=== PATIENT | male | born 1975 | race Caucasian/White ===

== ENCOUNTER 2017-08-19 23:07 | Emergency (ER) | payer MEDICAID, OTHER ==
[2017-08-19] MEDS ORDERED: fentaNYL 100 MCG/2 ML VIAL IVP STA (23:51)
[2017-08-19 23:57] VITALS: BP 129/83
[2017-08-20] MEDS ORDERED: fentaNYL 100 MCG/2 ML VIAL ONE (00:02)
[2017-08-20 00:04] LABS: BASOPHILS # (AUTO) 0.1 10^3/uL (0.0-0.1); BASOPHILS % (AUTO) 0.6 %; EOSINOPHILS # (AUTO) 0.4 10^3/uL (0.0-0.7); EOSINOPHILS % (AUTO) 3.9 %; HGB - HEMOGLOBIN 14.4 g/dL (14.0-18.0); LYMPHOCYTES # (AUTO) 2.9 10^3/uL (1.5-3.5); LYMPHOCYTES % (AUTO) 26.5 %; MEAN CORPUSCULAR HEMOGLOBIN 33.3 pg (27.0-31.0); MEAN CORPUSCULAR VOLUME 95.1 fL (80.0-94.0); MEAN PLATELET VOLUME 7.1 fL (7.4-11.4); MONOCYTES # (AUTO) 0.9 10^3/uL (0.0-1.0); MONOCYTES % (AUTO) 8.2 %; NEUTROPHILS # (AUTO) 6.7 10^3/uL (1.5-6.6); NEUTROPHILS % (AUTO) 60.8 %; RED BLOOD COUNT 4.31 10^6/uL (4.70-6.10); RED CELL DISTRIBUTION WIDTH 13.3 % (12.0-15.0); UNCORRECTED WHITE BLOOD COUNT 11.1 x10^3/uL; WHITE BLOOD COUNT 11.1 x10^3/uL (4.8-10.8)
[2017-08-20 00:14] LABS: ALBUMIN/GLOBULIN RATIO 1.4 (1.0-2.2); BILIRUBIN,TOTAL 0.4 mg/dL (0.2-1.0); CALCIUM 9.2 mg/dL (8.5-10.3); CREATININE 0.8 mg/dL (0.6-1.2); POTASSIUM 3.8 mmol/L (3.5-5.0); TOTAL PROTEIN 6.6 g/dL (6.7-8.2)
--- NOTE | 2017-08-20 00:54 | XRAY Preliminary Report ---
Exam: XR CHEST 1 VIEW IMPRESSION: Normal single view chest. [facility] SITE ID: [id number]
--- NOTE | 2017-08-20 00:57 | XRAY Report ---
EXAM: CHEST RADIOGRAPHY EXAM DATE: 08/20/2017 12:47 AM. CLINICAL HISTORY: Left sided chest pain. COMPARISON: 02/28/2011. TECHNIQUE: 1 view. FINDINGS: Lungs/Pleura: No focal opacities evident. No pleural effusion. No pneumothorax. Mediastinum: Within exam limitations, the cardiomediastinal contour is normal. Other: No bony abnormality noted. IMPRESSION: Normal single view chest. [facility] Referring Provider Line: [phone] SITE ID: [id number]
[2017-08-20] MEDS ORDERED: LIDOCAINE 2% 10 ML MDV ONE (01:50)
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
== END 2017-08-20 02:20 | disposition left against medical advice (07) ==
LOC: ED 23:07
DX: S69.82XA Other specified injuries of left wrist, hand and finger(s), initial encounter (principal); W31.89XA Contact with other specified machinery, initial encounter; Z53.29 Procedure and treatment not carried out because of patient's decision for other reasons; F17.200 Nicotine dependence, unspecified, uncomplicated
CPT/HCPCS: 36415; 71010; 80053; 83690; 84484; 85025; 93005; 99283; 99285

== ENCOUNTER 2017-11-01 10:16 | Emergency (ER) | payer OTHER, MEDICAID ==
[2017-11-01 10:31] VITALS: BP 110/83
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
[2017-11-01] MEDS ORDERED: IBUPROFEN 400 MG TABLET PO STA (11:16)
[2017-11-01] MEDS ORDERED: LIDOCAINE PATCH 5% TOP STA (11:16)
== END 2017-11-01 11:35 | disposition home or self-care (01) ==
LOC: ED 10:16
DX: S13.9XXA Sprain of joints and ligaments of unspecified parts of neck, initial encounter (principal); V49.40XA Driver injured in collision with unspecified motor vehicles in traffic accident, initial encounter; F17.200 Nicotine dependence, unspecified, uncomplicated
CPT/HCPCS: 99283; A9270

== ENCOUNTER 2019-05-23 16:34 | Emergency (ER) | payer MEDICAID, OTHER ==
--- NOTE | 2019-05-23 16:44 | ED Physician Documentation ---
History of Present Illness - Stated complaint Stated Complaint: CHEST PX - Chief complaint Chief Complaint: Cardiac - History obtained from History obtained from: Patient - Additonal information Additional information: Patient is a 44-year-old male presenting with about 1 month of intermittent left-sided chest discomfort and occasional palpitations. Patient denies any inciting incident or trauma. Patient has tried to see a primary care physician, but has not been unable to schedule an appointment. Patient denies association of lightheadedness, dizziness, syncope, shortness of breath, productive cough, fever, abdominal pain, GERD, nausea, vomiting, stool changes, urinary changes, leg swelling or pain. Patient does use alcohol, tobacco, and CBD oil. No other improving or worsening factors noted. Review of Systems Constitutional: denies: Fever Cardiac: reports: Chest pain / pressure, Palpitations Respiratory: denies: Dyspnea, Cough GI: denies: Abdominal Pain, Nausea, Vomiting, Diarrhea : denies: Dysuria PD PAST MEDICAL HISTORY - Past Medical History Past Medical History: No Psych: Panic attacks - Past Surgical History Past Surgical History: No - Present Medications Home Medications: Ambulatory Orders Medication Instructions Recorded Confirmed Citalopram [CeleXA] 1 tab PO DAILY 01/30/16 03/12/16 LORazepam [Ativan] 0.5 mg PO ONCE 01/30/16 03/12/16 Cyclobenzaprine [Flexeril] 10 mg PO TID PRN #20 tablet 03/12/16 HYDROcod/ACETAM 5/325 [[place] 5/325] 1 - 2 ea PO Q6H PRN #20 tablet 03/12/16 Cyclobenzaprine [Flexeril] 10 mg PO TID PRN #20 tablet 11/01/17 Ibuprofen [Motrin] 400 mg PO Q6H PRN #30 tablet 11/01/17 Lidocaine Patch 5% [Lidoderm Patch] 1 each TOP DAILY PRN #10 patch 11/01/17 - Allergies Allergies/Adverse Reactions: Allergies Allergy/AdvReac Type Severity Reaction Status Date / Time No Known Drug Allergies Allergy Verified 05/23/19 16:41 - Social History Does the pt smoke?: Yes Smoking Status: Current every day smoker Does the pt drink ETOH?: No Does the pt have substance abuse?: No - Immunizations Immunizations are current?: No - POLST Patient has POLST: No PD ED PE NORMAL - Vitals Vital signs reviewed: Yes - General General: Alert and oriented X 3, No acute distress, Well developed/nourished - HEENT HEENT: Atraumatic, Moist mucous membranes - Neck Neck: Supple, no meningeal sign - Cardiac Cardiac: RRR, No murmur - Respiratory Respiratory: No respiratory distress, Clear bilaterally - Abdomen Abdomen: Normal bowel sounds, Soft, Non tender, Non distended - Derm Derm: Normal color, Warm and dry, No rash - Extremities Extremities: No deformity, No tenderness to palpate, No edema - Neuro Neuro: Alert and oriented X 3, No motor deficit, No sensory deficit - Psych Psych: Normal mood, Normal affect Results - Vitals Vitals: Vital Signs - 24 hr 05/23/19 16:36 Temperature 36.8 C Heart Rate 87 Respiratory 19 Rate Blood Pressure 151/93 H O2 Saturation 99 Oxygen O2 Source Room air - EKG (time done) 1637 Rate: Rate (enter#) (79) Rhythm: NSR - Labs Labs: Laboratory Tests 05/23/19 05/23/19 05/23/19 17:09 17:09 17:09 WBC 7.8 RBC 4.39 L Hgb 14.5 Hct 42.7 MCV 97.3 H MCH 33.0 H MCHC 34.0 RDW 12.6 Plt Count 218 MPV 9.0 Neut # (Auto) 4.2 Lymph # (Auto) 2.6 [place] # (Auto) 0.6 Eos # (Auto) 0.3 Baso # (Auto) 0.1 Absolute Nucleated RBC 0.00 Nucleated RBC % 0.0 PT 10.8 INR 1.0 APTT 27.8 Sodium 139 Potassium 3.5 Chloride 103 Carbon Dioxide 23 Anion Gap 13.0 BUN 18 Creatinine 1.0 Estimated GFR (MDRD) 80 L Glucose 179 H Calcium 9.3 Total Bilirubin 0.4 AST 27 ALT 34 Alkaline Phosphatase 71 Troponin I Troponin I High Sens B-Natriuretic Peptide Total Protein 7.1 Albumin 3.9 Globulin 3.2 Albumin/Globulin Ratio 1.2 Lipase 32 TSH 05/23/19 05/23/19 05/23/19 17:09 17:09 17:09 WBC RBC Hgb Hct MCV MCH MCHC RDW Plt Count MPV Neut # (Auto) Lymph # (Auto) [place] # (Auto) Eos # (Auto) Baso # (Auto) Absolute Nucleated RBC Nucleated RBC % PT INR APTT Sodium Potassium Chloride Carbon Dioxide Anion Gap BUN Creatinine Estimated GFR (MDRD) Glucose Calcium Total Bilirubin AST ALT Alkaline Phosphatase Troponin I < 0.04 Troponin I High Sens 4.9 B-Natriuretic Peptide 18 Total Protein Albumin Globulin Albumin/Globulin Ratio Lipase TSH 1.27 PD MEDICAL DECISION MAKING - ED course Complexity details: reviewed results, re-evaluated patient, considered differential, d/w patient, d/w family ED course: Patient presenting with intermittent chest discomfort over the past 1 month. Patient does have risk factors of tobacco use. He reports that he does not have known diagnosis of other illnesses such as diabetes or hypertension, but has not been to the doctor for several years. Chest x-ray obtained which not find evidence of pulmonary edema, pneumonia, or other acute abnormality. EKG did not reflect ischemia and cardiac enzymes within normal limits. Remainder of work-up also unremarkable. Patient did receive aspirin while in the ED, but did not require other medications. Had extensive discussions with patient and family regarding need to follow-up with primary care physician, likely primary care physician referral to cardiology for further work-up including stress test and echocardiogram, return precautions, and other supportive cares including cessation of tobacco. Departure - Departure Disposition: 01 Home, Self Care Clinical Impression: Atypical chest pain Condition: Good Instructions: ED Chest Pain Atypical Unkn Cause Follow-Up: Doyle Alonso MD [Physician No Access] - Within 3 Days Comments: Recommend stopping use of CBD oil, tobacco, and alcohol. Recommend healthy diet, rest, and follow-up with primary care physician in the next 2 to 3 days or as soon as can be scheduled. May also try to contact cardiology office eyelid for follow-up. Please return to ED sooner if experience worsening symptoms or have other concerns.
[2019-05-23] MEDS ORDERED: ASPIRIN CHEW 81 MG TABLET PO STA (16:52)
[2019-05-23 17:18] LABS: BASOPHILS # (AUTO) 0.1 10^3/uL (0.0-0.1); BASOPHILS % (AUTO) 0.8 %; EOSINOPHILS # (AUTO) 0.3 10^3/uL (0.0-0.7); EOSINOPHILS % (AUTO) 4.4 %; HGB - HEMOGLOBIN 14.5 g/dL (14.0-18.0); LYMPHOCYTES # (AUTO) 2.6 10^3/uL (1.5-3.5); LYMPHOCYTES % (AUTO) 33.8 %; MEAN CORPUSCULAR VOLUME 97.3 fL (80.0-94.0); MONOCYTES # (AUTO) 0.6 10^3/uL (0.0-1.0); MONOCYTES % (AUTO) 7.6 %; NEUTROPHILS # (AUTO) 4.2 10^3/uL (1.5-6.6); NEUTROPHILS % (AUTO) 53.3 %; PLT - PLATELET COUNT 218 10^3/uL (130-450); RED BLOOD COUNT 4.39 10^6/uL (4.70-6.10); RED CELL DISTRIBUTION WIDTH 12.6 % (12.0-15.0); WHITE BLOOD COUNT 7.8 x10^3/uL (4.8-10.8)
[2019-05-23 17:23] LABS: PT - PROTHROMBIN TIME 10.8 secs (9.9-12.6)
[2019-05-23 17:31] LABS: PARTIAL THROMBOPLASTIN TIME 27.8 secs (24.9-33.3)
--- NOTE | 2019-05-23 17:39 | XRAY Report ---
Reason: cough Procedure Date: 05/23/2019 Accession Number: [id number] / [id number] Procedure: XR - Chest 2 View X-Ray CPT Code: 64491 FULL RESULT: EXAM: CHEST RADIOGRAPHY EXAM DATE: 05/23/2019 05:15 PM. CLINICAL HISTORY: Cough. COMPARISON: CHEST 1 VIEW 08/20/2017 12:48 AM. TECHNIQUE: 2 views. FINDINGS: Lungs/Pleura: No focal opacities evident. No pleural effusion. No pneumothorax. Normal volumes. Mediastinum: Heart and mediastinal contours are unremarkable. Other: None. IMPRESSION: No acute intrathoracic plain film abnormality. [facility]
[2019-05-23 17:56] LABS: TROPONIN I < 0.04 ng/mL (<0.49)
[2019-05-23 17:57] LABS: BILIRUBIN,TOTAL 0.4 mg/dL (0.2-1.0); CALCIUM 9.3 mg/dL (8.5-10.3)
[2019-05-23 17:58] LABS: ALBUMIN 3.9 g/dL (3.2-5.5); ALBUMIN/GLOBULIN RATIO 1.2 (1.0-2.2); TOTAL PROTEIN 7.1 g/dL (6.7-8.2)
[2019-05-23 18:34] VITALS: BP 143/74
== END 2019-05-23 18:33 | disposition home or self-care (01) ==
LOC: ED 16:34
DX: R07.89 Other chest pain (principal); F17.200 Nicotine dependence, unspecified, uncomplicated
CPT/HCPCS: 36415; 71046; 83690; 83880; 84484; 85610; 85730; 99283; 99284; A9270; 80053; 84443; 85025

== ENCOUNTER 2020-10-23 08:56 | Emergency (ER) | payer OTHER ==
[2020-10-23] MEDS ORDERED: LORazepam 2 MG/ML VIAL IVP STA (09:06)
--- NOTE | 2020-10-23 09:06 | ED Physician Documentation ---
PD HPI CHEST PAIN - Stated complaint Stated Complaint: CHEST PX - History obtained from History obtained from: Patient - Additional information Additional information: 45-year-old gentleman with history of anxiety was in his usual state of health this morning when he started to feel like his heart was beating rapidly at 7 AM. It is painless but he does have shortness of breath with it. No pedal edema or calf pain. His father had A. fib but he has no personal history of heart disease. Review of Systems Constitutional: denies: Fever, Chills, Sweats Cardiac: reports: Palpitations. denies: Chest pain / pressure, Pedal edema, Calf pain Respiratory: reports: Dyspnea. denies: Cough PD PAST MEDICAL HISTORY - Past Medical History Psych: Panic attacks - Past Surgical History Past Surgical History: No - Present Medications Home Medications: Ambulatory Orders Medication Instructions Recorded Confirmed LORazepam [Ativan] 1 mg PO TID PRN #7 tablet 10/23/20 - Allergies Allergies/Adverse Reactions: Allergies Allergy/AdvReac Type Severity Reaction Status Date / Time No Known Drug Allergies Allergy Verified 10/23/20 09:16 - Social History Does the pt smoke?: Yes Smoking Status: Current every day smoker Does the pt drink ETOH?: No Does the pt have substance abuse?: No - Immunizations Immunizations are current?: No - POLST Patient has POLST: No PD ED PE NORMAL - Vitals Vital signs reviewed: Yes - General General: Alert and oriented X 3, Other (Appears mildly anxious but otherwise in no distress.) - HEENT HEENT: PERRL, EOMI - Neck Neck: Supple, no meningeal sign, No bony TTP - Cardiac Cardiac: RRR, No murmur - Respiratory Respiratory: No respiratory distress, Clear bilaterally - Abdomen Abdomen: Non tender - Extremities Extremities: No edema, No calf tenderness / cord - Neuro Neuro: Alert and oriented X 3, Normal speech Results - Vitals Vitals: Vital Signs - 24 hr 10/23/20 10/23/20 10/23/20 09:00 09:05 09:35 Temperature 36.4 C L Heart Rate 81 80 77 Respiratory 21 13 14 Rate Blood Pressure 200/120 H 197/106 H 168/86 H O2 Saturation 99 96 94 Oxygen O2 Source Room air - EKG (time done) 0903 Rate: Rate (enter#) (83) Rhythm: NSR, LAE [place]: LAD Intervals: Normal [place] QRS: Normal Ischemia: Normal ST segments - Labs Labs: Laboratory Tests 10/23/20 10/23/20 10/23/20 09:00 09:00 09:00 WBC 8.3 RBC 4.83 Hgb 16.3 Hct 47.3 MCV 97.9 H MCH 33.7 H MCHC 34.5 RDW 12.3 Plt Count 247 MPV 8.8 Neut # (Auto) 6.3 Lymph # (Auto) 1.3 L [place] # (Auto) 0.5 Eos # (Auto) 0.1 Baso # (Auto) 0.1 Absolute Nucleated RBC 0.00 Nucleated RBC % 0.0 Sodium 136 Potassium 3.9 Chloride 103 Carbon Dioxide 24 Anion Gap 9.0 BUN 13 Creatinine 1.0 Estimated GFR (MDRD) 80 L Glucose 172 H Calcium 9.3 Troponin I High Sens 5.4 PD MEDICAL DECISION MAKING - ED course ED course: Presents with painless palpitations, he is in normal sinus rhythm. Cannot rule out resolved A. fib but this is not present in the department. He remained stable and felt much better after Ativan. No evidence of ischemic disease. Departure - Departure Disposition: Home, Self Care Clinical Impression: Palpitations Condition: Good Record reviewed to determine appropriate education?: Yes Instructions: ED Palpitations Prescriptions: LORazepam [Ativan] 1 mg PO TID PRN #7 tablet PRN Reason: Anxiety Comments: No findings of irregular heartbeat or fast heartbeat on her work-up here. Return if it recurs or if new symptoms develop. Do not drink or drive while taking Ativan. Follow-up with your primary care physician, next available appointment.
[2020-10-23 09:20] LABS: BASOPHILS # (AUTO) 0.1 10^3/uL (0.0-0.1); BASOPHILS % (AUTO) 0.7 %; EOSINOPHILS # (AUTO) 0.1 10^3/uL (0.0-0.7); EOSINOPHILS % (AUTO) 1.3 %; HGB - HEMOGLOBIN 16.3 g/dL (14.0-18.0); LYMPHOCYTES # (AUTO) 1.3 10^3/uL (1.5-3.5); LYMPHOCYTES % (AUTO) 15.6 %; MEAN CORPUSCULAR HEMOGLOBIN 33.7 pg (27.0-31.0); MEAN CORPUSCULAR HGB CONC 34.5 g/dL (32.0-36.0); MEAN CORPUSCULAR VOLUME 97.9 fL (80.0-94.0); MEAN PLATELET VOLUME 8.8 fL (7.4-11.4); MONOCYTES # (AUTO) 0.5 10^3/uL (0.0-1.0); MONOCYTES % (AUTO) 5.9 %; NEUTROPHILS # (AUTO) 6.3 10^3/uL (1.5-6.6); NEUTROPHILS % (AUTO) 76.1 %; PLT - PLATELET COUNT 247 10^3/uL (130-450); RED BLOOD COUNT 4.83 10^6/uL (4.70-6.10); RED CELL DISTRIBUTION WIDTH 12.3 % (12.0-15.0); WHITE BLOOD COUNT 8.3 x10^3/uL (4.8-10.8)
[2020-10-23 09:29] LABS: CALCIUM 9.3 mg/dL (8.5-10.3)
[2020-10-23] MEDS ORDERED: LORazepam 1 MG TABLET PO STA (09:52)
[2020-10-23 09:59] VITALS: BP 153/91
== END 2020-10-23 10:00 | disposition home or self-care (01) ==
LOC: ED 08:56
DX: R00.2 Palpitations (principal); F41.9 Anxiety disorder, unspecified; F17.200 Nicotine dependence, unspecified, uncomplicated
CPT/HCPCS: 36415; 80048; 84484; 85025; 93005; 96374; 99283; 99284; J2060; J8499

== ENCOUNTER 2020-11-19 16:48 | Outpatient (CLI) | payer OTHER | END 2020-11-19 16:49 | disposition home or self-care (01) | LOC: COV 16:48 | PROVIDERS: ATTEND Family Medicine | DX: U07.1 COVID-19 (principal) ==

== ENCOUNTER 2022-02-21 13:22 | Emergency (ER) | payer OTHER ==
[2022-02-21 13:53] LABS: BASOPHILS # (AUTO) 0.1 10^3/uL (0.0-0.1); EOSINOPHILS # (AUTO) 0.2 10^3/uL (0.0-0.7); EOSINOPHILS % (AUTO) 2.9 %; HCT - HEMATOCRIT 45.8 % (42.0-52.0); HGB - HEMOGLOBIN 15.7 g/dL (14.0-18.0); LYMPHOCYTES # (AUTO) 1.3 10^3/uL (1.5-3.5); LYMPHOCYTES % (AUTO) 15.9 %; MEAN CORPUSCULAR HEMOGLOBIN 33.5 pg (27.0-31.0); MEAN CORPUSCULAR HGB CONC 34.3 g/dL (32.0-36.0); MEAN CORPUSCULAR VOLUME 97.7 fL (80.0-94.0); MEAN PLATELET VOLUME 8.9 fL (7.4-11.4); MONOCYTES # (AUTO) 0.6 10^3/uL (0.0-1.0); MONOCYTES % (AUTO) 7.6 %; PLT - PLATELET COUNT 218 10^3/uL (130-450); RED BLOOD COUNT 4.69 10^6/uL (4.70-6.10); RED CELL DISTRIBUTION WIDTH 12.6 % (12.0-15.0); WHITE BLOOD COUNT 8.3 x10^3/uL (4.8-10.8)
[2022-02-21 14:06] LABS: ALBUMIN 3.8 g/dL (3.2-5.5); ALBUMIN/GLOBULIN RATIO 1.2 (1.0-2.2); BILIRUBIN,TOTAL 0.8 mg/dL (0.2-1.0); CALCIUM 9.1 mg/dL (8.5-10.3); CREATININE 0.8 mg/dL (0.6-1.2); POTASSIUM 4.2 mmol/L (3.5-5.0)
[2022-02-21] MEDS ORDERED: SODIUM CHLORIDE 0.9% 1,000 ML IV STA (14:22)
[2022-02-21] MEDS ORDERED: ONDANSETRON 4 MG/2 ML VIAL IVP STA (14:22)
[2022-02-21] MEDS ORDERED: HYDROmorphone 1 MG/ML CARPUJECT IVP STA (14:22)
[2022-02-21] MEDS ORDERED: KETOROLAC 15 MG/ML VIAL IVP STA (14:22)
--- NOTE | 2022-02-21 14:23 | ED Physician Documentation ---
PD HPI ABD PAIN - Stated complaint Stated Complaint: BACK PX,VOMITTING - Chief complaint Chief Complaint: Abd Pain - History obtained from History obtained from: Patient - Additional information Additional information: 46-year-old healthy gentleman was awoken at 2 AM this morning by severe left flank pain that has caused him to vomit several times. No urinary complaints or hematuria. No history of renal colic. No fevers or chills. Review of Systems Ten Systems: 10 systems reviewed and negative Constitutional: reports: Reviewed and negative Cardiac: reports: Reviewed and negative Respiratory: reports: Reviewed and negative PD PAST MEDICAL HISTORY - Past Medical History Psych: Panic attacks - Past Surgical History Past Surgical History: No - Present Medications Home Medications: Ambulatory Orders Medication Instructions Recorded Confirmed LORazepam [Ativan] 1 mg PO TID PRN #7 tablet 10/23/20 02/21/22 Ibuprofen [Motrin] 800 mg PO Q8H PRN #14 tablet 02/21/22 Ondansetron Odt [Zofran] 4 mg TL Q6H PRN #10 tablet 02/21/22 Oxycodone HCl/Acetaminophen 1 - 2 each PO Q6H PRN #14 tablet 02/21/22 [Percocet 5-325 mg Tablet] - Allergies Allergies/Adverse Reactions: Allergies Allergy/AdvReac Type Severity Reaction Status Date / Time No Known Drug Allergies Allergy Verified 02/21/22 13:39 - Social History Does the pt smoke?: Yes Smoking Status: Current every day smoker Does the pt drink ETOH?: No Does the pt have substance abuse?: No - Immunizations Immunizations are current?: No - POLST Patient has POLST: No PD ED PE NORMAL - Vitals Vital signs reviewed: Yes - General General: Alert and oriented X 3, Other (He appears uncomfortable and is laying on his side curled up in a ball) - Cardiac Cardiac: RRR, No murmur - Respiratory Respiratory: No respiratory distress, Clear bilaterally - Abdomen Abdomen: Normal bowel sounds, Soft, Non tender - Back Back: No CVA TTP, No spinal TTP - Derm Derm: Normal color, Warm and dry - Extremities Extremities: No edema, No calf tenderness / cord - Neuro Neuro: Alert and oriented X 3, Normal speech Results - Vitals Vitals: Vital Signs - 24 hr 02/21/22 13:36 Temperature 36.5 C Heart Rate 61 Respiratory 16 Rate Blood Pressure 160/97 H O2 Saturation 100 Oxygen O2 Source Room air - Labs Labs: Laboratory Tests 02/21/22 02/21/22 02/21/22 13:32 13:46 13:46 WBC 8.3 RBC 4.69 L Hgb 15.7 Hct 45.8 MCV 97.7 H MCH 33.5 H MCHC 34.3 RDW 12.6 Plt Count 218 MPV 8.9 Neut # (Auto) 6.0 Lymph # (Auto) 1.3 L [place] # (Auto) 0.6 Eos # (Auto) 0.2 Baso # (Auto) 0.1 Absolute Nucleated RBC 0.00 Nucleated RBC % 0.0 Sodium 136 Potassium 4.2 Chloride 102 Carbon Dioxide 25 Anion Gap 9.0 BUN 11 Creatinine 0.8 Estimated GFR (MDRD) 103 Glucose 135 H Calcium 9.1 Total Bilirubin 0.8 AST 22 ALT 39 Alkaline Phosphatase 59 Total Protein 7.0 Albumin 3.8 Globulin 3.2 Albumin/Globulin Ratio 1.2 Lipase 33 Urine Color YELLOW Urine Clarity CLEAR Urine pH 7.0 Ur Specific [place] 1.020 Urine Protein NEGATIVE Urine Glucose (UA) NEGATIVE Urine Ketones NEGATIVE Urine Occult Blood NEGATIVE Urine Nitrite NEGATIVE Urine Bilirubin NEGATIVE Urine Urobilinogen 0.2 (NORMAL) Ur Leukocyte Esterase NEGATIVE Ur Microscopic Review NOT INDICATED Urine Culture Comments NOT INDICATED PD MEDICAL DECISION MAKING - ED course ED course: 46-year-old gentleman presents with severe back pain with vomiting. After administration of pain medication he was very comfortable at that point it became clear that the pain was associated with motion. CT was negative for renal stone etc., the incidental finding of the inguinal hernia was discussed with him. Departure - Departure Disposition: 01 Home, Self Care Clinical Impression: Left flank pain Condition: Good Record reviewed to determine appropriate education?: Yes Instructions: ED Neck Back Pain General Prescriptions: Ibuprofen [Motrin] 800 mg PO Q8H PRN #14 tablet PRN Reason: PAIN &/OR FEVER Oxycodone HCl/Acetaminophen [Percocet 5-325 mg Tablet] 1 - 2 each PO Q6H PRN #14 tablet PRN Reason: pain Ondansetron Odt [Zofran] 4 mg TL Q6H PRN #10 tablet PRN Reason: Nausea / Vomiting Comments: I sent your prescription electronically to the [facility] pharmacy at the corner of [address] here in [place]. Return for new or worsening symptoms. As discussed you do have a incidental finding of a right inguinal hernia which may bother you some day. Call your doctor to arrange a follow-up appointment, make the next available appointment. In the interim, return anytime if worse or if new symptoms develop. I am prescribing a short course of narcotic pain medication for you. These are potentially dangerous and addictive medications that should be used carefully. These medications may constipate you. Take an [id number] stool softener (docusate) twice daily with plenty of water while taking these medications. If you go 24 hours without a bowel movement, take [id number]-[id number] miralax, per package instructions. Do not drink or drive while taking these medications. If you received narcotic or sedating medications while in the emergency department, do not drive for 24 hours. Store this medication in a safe, secure place and out of reach of children. It is a violation of federal law to give or sell this medication to another person or to use in a manner other than prescribed. The ED will not refill narcotic prescriptions, including prescriptions lost or stolen. To dispose of unwanted medications: 1. [facility] [address] in [place] has a medication drop box. They accept prescription medications (in pill form) Monday through Monday 9:00 a.m. to 5:00 p.m. 2. The [facility] accepts prescription medications (in pill form only) for disposal year round. Call for more information. 3. Contact the [facility] for the next [facility] sponsored prescription drug collection event. , [phone], or [phone]; Note that many narcotic pain relievers also contain Tylenol/acetaminophen. Please ensure that your total dose of acetaminophen from all sources does not exceed 3 g (3000 mg) per day.
[2022-02-21 14:47] LABS: BILIRUBIN,URINE NEGATIVE (NEGATIVE); GLUCOSE, URINE (UA) NEGATIVE (NEGATIVE); KETONES,URINE (UA) NEGATIVE (NEGATIVE); LEUKOCYTE ESTERASE, URINE NEGATIVE (NEGATIVE); NITRITE,URINE NEGATIVE (NEGATIVE); OCCULT BLOOD,URINE NEGATIVE (NEGATIVE); PROTEIN,URINE NEGATIVE (NEGATIVE); UROBILINOGEN,URINE 0.2 (NORMAL) E.U./dL (NORMAL)
[2022-02-21 14:49] LABS: CLARITY,URINE CLEAR (CLEAR)
--- NOTE | 2022-02-21 15:52 | CT Report ---
PROCEDURE: CT abdomen and pelvis without contrast INDICATIONS: R flank pain TECHNIQUE: Noncontrast 5 mm thick sections acquired from the diaphragms to the symphysis. 5 mm coronal and sagi ttal reformats were then performed. For radiation dose reduction, the following was used: automated exposure control, adjustment of mA and/or kV according to patient size. COMPARISON: None. FINDINGS: Image quality: Excellent. ABDOMEN: Lung bases: Lung bases are clear. Heart size is normal. Solid organs: Liver and spleen are normal in size other than hepatic fatty infiltration. Gallbladde r unremarkable. Pancreas is normal in contours. No adrenal nodules. Kidneys are normal in size, wi thout hydronephrosis or nephrolithiasis. Peritoneum and bowel: Unenhanced bowel loops demonstrate normal wall thickness and caliber. No free fluid or air. Nodes and vessels: No retroperitoneal or mesenteric adenopathy by size criteria. Aorta and inferior vena cava are normal in caliber. Miscellaneous: No ventral hernias. PELVIS: Genitourinary: Bladder wall thickness is normal. Miscellaneous: Right inguinal hernia contains fat without bowel involvement Bones: No suspicious bony lesions. No vertebral body compression fractures. IMPRESSION: 1. No evidence of renal calculi, obstructive uropathy or hydronephrosis. Normal appendix. 2. Small right inguinal hernia contains fat without bowel involvement. Reviewed by: Vasquez Rosario MD on 02/21/2022 2:50 PM AKDT Approved by: Vasquez Rosario MD on 02/21/2022 2:50 PM AKDT Station ID: [id number]
[2022-02-21 16:11] VITALS: BP 148/96
== END 2022-02-21 16:19 | disposition home or self-care (01) ==
LOC: ED 13:22
DX: R10.32 Left lower quadrant pain (principal); F17.200 Nicotine dependence, unspecified, uncomplicated
CPT/HCPCS: 36415; 74176; 80053; 81003; 83690; 85025; 96374; 96375; 99283; 99284; J1170; 81001; 87086

== ENCOUNTER 2022-02-22 01:15 | Emergency (ER) | payer OTHER ==
--- NOTE | 2022-02-22 01:24 | ED Physician Documentation ---
PD HPI BACK PAIN - Stated complaint Stated Complaint: BACK PX - History obtained from History obtained from: Patient - History of Present Illness Timing - onset: Enter time (02:00), Yesterday Timing - details: Abrupt onset, Intermittant Pain level max: 10 (movement involving lower back) Pain level now: 5 (lying still) Location: Lower, Left Quality: Pain, Spasm Associated symptoms: No: Fever, Weakness, Numbness, Incontinent of urine, Unable to urinate, Hematuria, Incontinent of stool Improves with: Rest Worsened by: Movement Recently seen: Emergency Dept - Additional information Additional information: T+R from this ED yesterday for same pain; patient had woken from sleep at approximately 2 AM yesterday with sudden onset left low back pain with spasm , nausea, and vomiting. He had workup that included UA, blood tests, and CT A/P; there were no concerning nor diagnostic findings on these tests and patient had significant improvement with zofran, dilaudid, and toradol. He was prescribed ibuprofen, zofran, and percocet. He says he had sudden recurrence of the same pain, same location (left lower back) at approximately 11 PM tonight, again waking him from sleep. He says he was unable to tolerate the zofran due to n/v. he only took a half-tablets of percocet for fear of it worsening the n/v. He denies injury, denies h/o similar pains. The pain is distinctly worsened by movement involving the lower back and improves with rest. Denies weakness, numbness, bowel/bladder incontinence Review of Systems Constitutional: reports: Reviewed and negative GI: reports: Nausea, Vomiting. denies: Abdominal Pain, Abdominal Swelling, Constipation, Diarrhea : denies: Dysuria, Frequency, Hematuria Skin: denies: Rash Musculoskeletal: reports: Back pain. denies: Neck pain Neurologic: denies: Generalized weakness, Focal weakness, Numbness, Headache PD PAST MEDICAL HISTORY - Past Medical History Past Medical History: Yes Psych: Panic attacks - Past Surgical History Past Surgical History: No - Present Medications Home Medications: Ambulatory Orders Medication Instructions Recorded Confirmed LORazepam [Ativan] 1 mg PO TID PRN #7 tablet 10/23/20 02/21/22 Ibuprofen [Motrin] 800 mg PO Q8H PRN #14 tablet 02/21/22 Ondansetron Odt [Zofran] 4 mg TL Q6H PRN #10 tablet 02/21/22 Oxycodone HCl/Acetaminophen 1 - 2 each PO Q6H PRN #14 tablet 02/21/22 [Percocet 5-325 mg Tablet] Cyclobenzaprine [Flexeril] 10 mg PO TID PRN #20 tablet 02/22/22 Promethazine [Phenergan] 25 mg PO Q6H PRN #10 tab 02/22/22 - Allergies Allergies/Adverse Reactions: Allergies Allergy/AdvReac Type Severity Reaction Status Date / Time No Known Drug Allergies Allergy Verified 02/22/22 01:28 - Living Situation Living Arrangement: reports: At home - Social History Does the pt smoke?: Yes Smoking Status: Current every day smoker Does the pt drink ETOH?: No Does the pt have substance abuse?: No - Immunizations Immunizations are current?: No - POLST Patient has POLST: No PD ED PE NORMAL - Vitals Vital signs reviewed: Yes - General General: Alert and oriented X 3, Well developed/nourished, Other (appears uncomfortable due to pain, lying on right side (right side down) on stretcher) - Neck Neck: Supple, no meningeal sign - Cardiac Cardiac: RRR, No murmur - Respiratory Respiratory: No respiratory distress, Clear bilaterally - Abdomen Abdomen: Normal bowel sounds, Soft, Non tender, Non distended - Back Back: No CVA TTP, No spinal TTP - Derm Derm: Normal color, Warm and dry, No rash - Neuro Neuro: No motor deficit (5/5 bilateral dorsi/plantarflexion), No sensory deficit (LTS intact BLE) Results - Vitals Vitals: Vital Signs - 24 hr 02/22/22 02/22/22 02/22/22 01:24 01:28 01:44 Temperature 36.2 C L Heart Rate 67 70 63 Respiratory 22 14 20 Rate Blood Pressure 145/94 H O2 Saturation 98 96 99 02/22/22 02/22/22 02/22/22 01:46 02:51 03:02 Temperature Heart Rate 70 Respiratory 15 Rate Blood Pressure 154/98 H 145/94 H O2 Saturation 94 96 02/22/22 02/22/22 04:10 04:22 Temperature Heart Rate 71 Respiratory 16 16 Rate Blood Pressure 143/99 H O2 Saturation 99 Oxygen O2 Source Nasal cannula PD MEDICAL DECISION MAKING - ED course Complexity details: reviewed old records, re-evaluated patient, considered differential, d/w patient ED course: patient had unremarkable tests less than 24 hours before this presentation tonight (included blood tests, UA, and CT A/P) and thus no tests performed on this visit. The pain is distinctly related to movement involving the lower back and has a spasm component per patient's description. There is no midline tenderness of the T/L/S spine, no rash, no CVA tenderness bilaterally. He is given 1 mg dilaudid, 4mg IV zofran, and 1mg IV lorazepam (for skeletal muscle relaxant effect as well as to augment effect of the hydromorphone). This resulted in excellent symptom relief associated with unintended sedation (briefly required nasal canula oxygen for hypoxia related to hypopnea). On reevaluation when he became more awake, he reports excellent symptom relief. I encouraged him to take the percocet as prescribed (1-2 tablets per dose) rather than taking just 1/2 tab for moderate/severe pain. I submitted prescriptions for flexeril and phenergan to his pharmacy. Unfortunately, when he went to stand up once he was flagged for discharge, he had sudden return of severe left low back pain and spasm. By the time I was back in the room to reevaluate him, he is lying on his side , right side down, but in NAD. He says he is not having and significant discomfort when lying still. We agreed on plan to give 10mg oxycodone along with 25 mg PO phenergan and 10 mg PO flexeril and reassess to see if this regimen will control his symptoms in outpatient setting. On reevaluation after these meds were given and sufficient time had elapsed, patient is able to slowly stand and pivot into wheelchair. He is in NAD and comfortable going home at this point. He is also given 30mg IV toradol prior to d/c Departure - Departure Disposition: 01 Home, Self Care Clinical Impression: Back pain Qualifiers: Back pain location: low back pain Chronicity: acute Back pain laterality: left Sciatica presence: without sciatica Qualified Code(s): M54.50 - Low back pain, unspecified Condition: Good Instructions: ED Spasm Back No Trauma, ED Neck Back Pain General Prescriptions: Cyclobenzaprine [Flexeril] 10 mg PO TID PRN #20 tablet PRN Reason: Spasms Promethazine [Phenergan] 25 mg PO Q6H PRN #10 tab PRN Reason: Nausea / Vomiting Comments: Follow up with your primary care provider , next available appointment for reevaluation. If you do not have a primary care provider, contact your insurance provider to discuss options for local primary care. Prescriptions for phenergan (an anti-nausea medication that is different than the one previous prescribed (ondansetron)) and cyclobenzaprine (a muscle relaxer) have been electronically submitted to the [facility] pharmacy in [place]. You can use the cyclobenzaprine IN ADDITION to the oxycodone that was prescribed yesterday. You can try the phenergan for nausea instead of the ondansetron. Forms: Activity restrictions Discharge Date/Time: 02/22/22 05:55
[2022-02-22] MEDS: HYDROmorphone 1 MG/ML CARPUJECT IVP STA (02:29)
[2022-02-22] MEDS: ONDANSETRON 4 MG/2 ML VIAL IVP STA (02:33)
[2022-02-22] MEDS: LORazepam 2 MG/ML VIAL IVP STA (02:35)
[2022-02-22] MEDS: SODIUM CHLORIDE 0.9% 1,000 ML IV STA (02:38)
[2022-02-22 04:11] VITALS: BP 143/99
[2022-02-22] MEDS: oxyCODONE 5 MG TABLET PO STA (05:14)
[2022-02-22] MEDS: CYCLOBENZAPRINE 10 MG TABLET PO STA (05:14)
[2022-02-22] MEDS: KETOROLAC 30 MG/ML VIAL IVP STA (05:14)
[2022-02-22] MEDS: PROMETHAZINE 25 MG TABLET PO STA (05:14)
== END 2022-02-22 05:55 | disposition home or self-care (01) ==
LOC: ED 01:15
DX: M54.50 Low back pain, unspecified (principal); R09.02 Hypoxemia; T40.2X5A Adverse effect of other opioids, initial encounter; T45.0X5A Adverse effect of antiallergic and antiemetic drugs, initial encounter; T42.4X5A Adverse effect of benzodiazepines, initial encounter; F17.200 Nicotine dependence, unspecified, uncomplicated
CPT/HCPCS: 96374; 96375; 99284; 99285; A9270; J1170; J2060; Q0169